=== PATIENT | male | born 1935 | race Caucasian/White ===

== ENCOUNTER 2018-01-13 09:03 | Day surgery (SDC) | payer MEDICARE, BC ==
[2018-01-08 11:13] VITALS: BMI 24.0
[~2018-01-13 09:03] MED LIST: SODIUM CHLORIDE 0.9% 1,000 ML IV SCH; ceFAZolin IN SWFI 2 GM/20 ML SYRINGE IVP ONE
[2018-01-13 09:40] VITALS: RESP 18; TEMP 98.1
[2018-01-13] MEDS ORDERED: MIDAZOLAM 2 MG/2 ML VIAL IV ONE (11:29)
[2018-01-13] MEDS ORDERED: LIDOCAINE 1% INJ 10MG/ML (20 ML MDV) SQ ONE (11:30)
--- NOTE | 2018-01-13 11:49 | P.PCN ---
Preoperative Diagnosis: Loop monitor implant Primary physicians: Dr. Hayes Telehealth Case Manager: Dr. Moore Indication: Tachybradycardia syndrome, postconversion pauses, conduction system disease, atrial fibrillation Patient was brought to the EP lab in a fasting state. Written informed consent was obtained prior to the procedure. The left pectoral area was prepped and draped per protocol. Intravenous antibiotic was administered preoperatively. A subcutaneous Loop monitor was implanted successfully and the wound was closed per protocol. The device was programmed to detect significant lisa- arrhythmic and tachy-arrhythmic events, per protocol. Device and programming details: Atrial fibrillation and bradycardia Patient underwent EP procedure under conscious sedation/moderate sedation, monitoring of the level of consciousness and physiologic parameters including but not limited to vital signs and oxygenation. Patient tolerated the procedure well without any acute complications. Start time: 1129 Stop time: 1141 Disposition: same day
[2018-01-13 12:03] VITALS: BP 132/83; PULSE 55
== END 2018-01-13 12:25 | disposition home or self-care (01) ==
LOC: CATHEP 09:03
PROVIDERS: ATTEND Internal Medicine Clinical Cardiac Electrophysiology
DX: I49.5 Sick sinus syndrome (principal); I48.0 Paroxysmal atrial fibrillation; I10 Essential (primary) hypertension; I25.10 Atherosclerotic heart disease of native coronary artery without angina pectoris; E78.5 Hyperlipidemia, unspecified; I49.3 Ventricular premature depolarization; I65.29 Occlusion and stenosis of unspecified carotid artery; I35.2 Nonrheumatic aortic (valve) stenosis with insufficiency; Z79.01 Long term (current) use of anticoagulants; Z79.82 Long term (current) use of aspirin; Z79.899 Other long term (current) drug therapy
CPT/HCPCS: 33282; J2250; J2001; J0690

== ENCOUNTER 2019-12-02 12:18 | Day surgery (SDC) | payer MEDICARE, BC ==
[2019-12-01 10:39] VITALS: BMI 21.9
[2019-12-02] MEDS ORDERED: SODIUM CHLORIDE 0.9% 500 ML 500 ML IV ONE (12:50)
[2019-12-02 12:53] LABS: Basophils % (A) 1 %; Eosinophils # (A) 0.2 k/uL (0-0.7); Eosinophils % (A) 3 %; HCT 45.8 % (39.0-53.0); HGB 15.1 gm/dL (13.0-17.5); Lymphocytes # (A) 1.8 k/uL (1.0-4.8); Lymphocytes % (A) 24 %; MCH 31.2 pg (25.0-35.0); MCV 94.4 fL (80.0-100.0); Mean Platelet Volume 7.1; Monocytes # (A) 0.6 k/uL (0-1.0); Monocytes % (A) 8 %; Neutrophils # (A) 4.7 k/uL (1.3-7.7); Neutrophils % (A) 62 %; Platelet Count 199 k/uL (150-450); RBC 4.85 m/uL (4.30-5.90); RDW 12.2 % (11.5-15.5); WBC 7.5 k/uL (3.8-10.6)
[2019-12-02 13:03] LABS: African American GFR (CKD) >90 (>60 ml/min/1.73 sqM); Anion Gap 7 mmol/L; Blood Urea Nitrogen 20 mg/dL (9-20); Calcium 9.7 mg/dL (8.4-10.2); Carbon Dioxide 29 mmol/L (22-30); Chloride 103 mmol/L (98-107); Glucose 99 mg/dL (74-99); Non-African American GFR(CKD) 84 (>60 ml/min/1.73 sqM); Sodium 139 mmol/L (137-145)
[2019-12-02] MEDS ORDERED: fentaNYL (PF) 50 MCG/ML 2 ML AMP ONE (15:26)
[2019-12-02] MEDS ORDERED: MIDAZOLAM 2 MG/2 ML VIAL ONE (15:26)
[2019-12-02] MEDS ORDERED: LIDOCAINE 1% INJ 10MG/ML (20 ML MDV) ONE (15:43)
[2019-12-02] MEDS: ceFAZolin 1,000 MG in SODIUM CHLORIDE 0.9% IRRIGATIO 250 ML IRRIGATION ONE ×2 (15:45→15:54)
[2019-12-02] MEDS ORDERED: IOPAMIDOL-370 50ML BTL INJ ONE ×2 (15:45)
[2019-12-02] MEDS: LIDOCAINE 1% INJ 10MG/ML (20 ML MDV) SQ ONE ×2 (16:02→17:50)
[2019-12-02] MEDS ORDERED: LIDOCAINE 1% INJ 10MG/ML (20 ML MDV) SQ ONE ×2 (16:08→16:28)
[2019-12-02] MEDS ORDERED: ACETAMINOPHEN IV (For NPO) 1,000 MG in EMPTY BAG 1 BAG IVPB ONE (17:31)
[2019-12-02] MEDS ORDERED: HYDROcodone/APAP 5-325MG 1 EACH TAB PO PRN (17:31)
--- NOTE | 2019-12-02 18:03 | P.PCN ---
Preoperative Diagnosis: Loop explant under sedation and local anesthesia. Patient was brought to the EP lab in a fasting state. Written informed consent was obtained prior to the procedure. The subcutaneous device was successfully explanted under local anesthesia. Preoperative antibiotics were administered. The wound was closed in layers and dressed per protocol. Result: Successful loop monitor explantation. Anesthesia/BODY AND FRAME TECHNICIAN was in attendance for the entire case
--- NOTE | 2019-12-02 18:13 | P.PCN ---
Preoperative Diagnosis: Left upper extremity venogram 15 mL of IV dye was injected in the left arm and a patent cephalic axillary and subclavian venous system was noted Plan Proceed with biventricular ventricular pacemaker implantation
[2019-12-02 19:08] VITALS: RESP 18
[2019-12-02] MEDS: ACETAMINOPHEN TAB 325 MG TAB PO PRN (20:23)
[2019-12-02] MEDS: APIXABAN 5 MG TAB PO SCH (20:24)
[2019-12-02] MEDS ORDERED: ATORVASTATIN 20 MG TAB PO SCH (21:00)
[2019-12-02] MEDS: SODIUM CHLORIDE 0.9% 1,000 ML IV SCH (21:41)
--- NOTE | 2019-12-03 03:14 | CE ---
CARDIAC ELECTROPHYSIOLOGY REPORT Mr. Hernandez is an 83-year-old male patient who has symptomatic paroxysmal AV block and sick sinus syndrome. He is brought in for a biventricular pacemaker implant to avoid RV pacing. Patient was brought to the EP lab in a fasting state. Written informed consent was obtained prior to the procedure. The left shoulder area was prepped and draped as per protocol and 1% lidocaine was used for local anesthesia. A 4 cm incision was made parallel to the deltopectoral groove, about 1.5 cm medial to it, the incision was carried down to the level of the pectoralis muscle. Subfascial pocket was made. Hemostasis was assured. The left axillary vein was accessed at 3 separate points under fluoroscopy and via appropriately-sized introducer sheaths 3 leads were positioned in the right heart. The right atrial lead was a passive lead, Medtronic model #4574, 53 cm in length and serial number [id number]. P waves 2.1 mV, pacing impedance 781 ohms, pacing threshold 0.4 V at 0.5 milliseconds. Ten volt test negative. The RV lead was a passive lead, 58 cm, a Medtronic model #4074 and serial number [id number]. This was positioned in the RV apex. R waves 12 mV, pacing impedance 1026 ohms, pacing threshold 0.5 V at 0.5 milliseconds. Ten volt test was negative. The third lead that was connected to the LV port of the biventricular pacemaker was a Medtronic model #3830, 69 cm in length and serial number [id number]. Nonselective capture of the His bundle was noted with loss of capture of His bundle was 0.6 V at 1 millisecond. All sheaths were removed. The leads were secured to the underlying pectoralis muscle and the pocket was irrigated with antibiotic solution. Leads were then connected to the generator and the generator were then secured to the underlying pectoralis muscle. This was a Medtronic model number W1TR02, serial number [id number]. The lead and generator were then placed in subfascial pocket. The wound was closed in 3 layers and dressed per protocol. RESULT: Successful biventricular pacemaker implantation for symptomatic paroxysmal AV block and sick sinus syndrome. The device is programmed to DDD mode 50 to 130 ppm. Following that, the loop monitor was explanted. Please see the separate dictation for this and the separate dictation for the left upper extremity venogram that was performed prior to starting the procedure. MMLING / IJN: [id number] /
[2019-12-03] MEDS: SODIUM CHLORIDE 0.9% 1,000 ML IV SCH (04:14)
--- NOTE | 2019-12-03 07:26 | P.PRLE ---
RE: Hilton Hernandez Dear Dr. Hayes Given David and loop monitor implant about 2 years back This recently showed paroxysmal AV block, symptomatic He underwent successful implantation of a biventricular pacemaker with physiologic septal pacing/His bundle pacing Patients with AV node disease or severe bradycardia, in whom the anticipated right ventricular pacing percentage will be high with standard dual-chamber pacing are at a disadvantage since RV pacing over years promotes LV systolic dysfunction and heart failure as well as increased episodes of atrial fibrillation. Biventricular pacing either using an LV lead in the coronary epicardial veins or His bundle pacing promotes a synchronized LV contraction and preserves LV systolic function with reduction in heart failure. One advantage of His bundle pacing is that it promotes conduction down both the normal bundles, simulating intrinsic conduction and preserving LV systolic function This is especially so in patients who already have LV dysfunction His medications will remain unchanged Thank you for entrusting me with the care of the patient Warm regards Sincerely Jesús Quinn
--- NOTE | 2019-12-03 07:33 | P.DS ---
Providers Attending physician: Jesús Quinn Primary care physician: [facility] Course: Patient is doing well. He has localized discomfort over the revealed explant site Pacemaker site is healed well no hematoma no bruising no bruising no swelling Heart sounds are normal, normal S1 normal S2 Breath sounds are clear no rhonchi no crackles No JVD On examination afebrile 97.5F, blood pressure 127/66. His mercury normal respirations normal heart rates Twelve-lead ECG shows sinus mechanism Chest x-ray reviewed and leads in stable position. No pneumothorax Impression Symptomatic paroxysmal AV block and sick sinus syndrome Hypertension Status post biventricular pacemaker with physiologic septal pacing Suggest Discharge home after completion of IV antibiotics Chest x-ray Device interrogation No changes in medications Follow-up in the device clinic in one week and call Dr. Quinn in 3 months Plan - Discharge Summary Discharge Rx Participant: No New Discharge Prescriptions: Continue Multivitamins, Thera [Multivitamin (formulary)] 1 tab PO DAILY Donepezil [Aricept] 10 mg PO DAILY Apixaban [Eliquis] 5 mg PO BID Aspirin [Adult Low Dose Aspirin EC] 81 mg PO Q3D amLODIPine BESYLATE/BENAZEPRIL [amLODIPine BESYLATE/BENAZEPRIL 10-40 MG] 1 cap PO DAILY hydroCHLOROthiazide 12.5 mg PO QAM Atorvastatin [Lipitor] 20 mg PO HS Fish Oil/Dha/Epa [Fish Oil 1,200 mg Fish Oil] 1 each PO DAILY Cannabidiol (Cbd) [Epidiolex] 0 mg PO DAILY Discharge Medication List Apixaban [Eliquis] 5 mg PO BID 01/08/18 [History] Aspirin [Adult Low Dose Aspirin EC] 81 mg PO Q3D 01/08/18 [History] Atorvastatin [Lipitor] 20 mg PO HS 01/08/18 [History] Donepezil [Aricept] 10 mg PO DAILY 01/08/18 [History] Fish Oil/Dha/Epa [Fish Oil 1,200 mg Fish Oil] 1 each PO DAILY 01/08/18 [History] Multivitamins, Thera [Multivitamin (formulary)] 1 tab PO DAILY 01/08/18 [History] amLODIPine BESYLATE/BENAZEPRIL [amLODIPine BESYLATE/BENAZEPRIL 10-40 MG] 1 cap PO DAILY 01/08/18 [History] hydroCHLOROthiazide 12.5 mg PO QAM 01/08/18 [History] Cannabidiol (Cbd) [Epidiolex] 0 mg PO DAILY 12/01/19 [History] Follow up Appointment(s)/Referral(s): Jesús Quinn MD [STAFF PHYSICIAN] - 1 Week (Device clinic follow-up in 1 week Follow-up with Dr. Quinn/Jennifer Salgado/Lula Chong in 3 months) Activity/Diet/Wound Care/Special Instructions: PATIENT EDUCATION MATERIAL Instructions following a heart rhythm device implant. 1. Keep dressing DRY for 5 DAYS. You may cover the area with Saran or Cling Wrap, prior to a shower. 2. The dressing will be removed in the Device Clinic at [facility]. Absorbable sutures were used to close the wound. 3. Avoid raising the left arm above the shoulder level. 4 week restriction 4. Avoid arm movements, like backscratching, rubbing the head, or pulling on a cord. 4 weeks restriction 5. Gentle range of motion movements of the shoulder, closest to the incision should be performed to avoid a frozen shoulder. (Pendulum exercises of the shoulder) 6. The opposite arm may be used freely. 7. Avoid driving for 7 days. 8. Avoid activities such as golfing, swimming, weed whacking, lifting more than 10 pounds weight, bowling, gymnastics and weight training/lifting. (6 weeks restriction) 9. Activities such as wood chopping with an axe, pull-ups in the gymnasium, po wer lifting, arc-welding, being close to home induction cooktops will always be a problem. 10. Arm sling is only a reminder not to raise the arm above the head. You do not need to keep the arm completely immobilized. Your free to move the arm and use it and for normal activities. In case of any problems, please call [facility], Selene Liriano, @ [phone], Attention: Device Clinic Device clinic follow-up in 5 days Follow-up with primary gatehouse attendant in 2-3 months No changes in medications Discharge Disposition: HOME SELF-CARE
--- NOTE | 2019-12-03 07:38 | XR ---
EXAMINATION TYPE: XR chest 2V DATE OF EXAM: 12/03/2019 COMPARISON: NONE HISTORY: Shortness of breath TECHNIQUE: Frontal and lateral views of the chest are obtained. FINDINGS: Scattered senescent parenchymal changes noted. Granuloma right mid lung zone. No evidence for infiltrate. No evidence for atelectasis. Heart size is stable. Mediastinal structures are stable and grossly unremarkable. No evidence for hilar prominence. Degenerative changes dorsal spine. IMPRESSION: 1. No evidence for acute pulmonary disease.
[2019-12-03 07:58] VITALS: BP 138/86; PULSE 84; TEMP 97.8
[2019-12-03] MEDS: APIXABAN 5 MG TAB PO SCH (07:58)
[2019-12-03] MEDS: ACETAMINOPHEN TAB 325 MG TAB PO PRN (08:00)
[2019-12-03] MEDS ORDERED: NON FORMULARY DRUG (Amlodipine Besylate/Benazepril [Amlodipine Besylate/Benazepril 10-40 M PO SCH (09:00)
[2019-12-03] MEDS ORDERED: ASPIRIN 81 MG PO SCH (09:00)
[2019-12-03] MEDS ORDERED: lisinopriL 20 MG TAB PO SCH (09:00)
[2019-12-03] MEDS ORDERED: amLODIPine 10 MG TAB PO SCH (09:00)
[2019-12-03] MEDS ORDERED: hydroCHLOROthiazide 12.5 MG CAP PO SCH (09:00)
== END 2019-12-03 10:39 | disposition home or self-care (01) ==
LOC: CATHEP 12:18 → 3NCARDOBS 17:25 → CATHEP 12-03 10:39
PROVIDERS: ATTEND Internal Medicine Clinical Cardiac Electrophysiology
DX: I44.2 Atrioventricular block, complete (principal); I49.5 Sick sinus syndrome; Z45.09 Encounter for adjustment and management of other cardiac device; I35.0 Nonrheumatic aortic (valve) stenosis; I48.0 Paroxysmal atrial fibrillation; I25.10 Atherosclerotic heart disease of native coronary artery without angina pectoris; I10 Essential (primary) hypertension; E78.5 Hyperlipidemia, unspecified; Z79.01 Long term (current) use of anticoagulants; Z79.82 Long term (current) use of aspirin; Z79.899 Other long term (current) drug therapy
CPT/HCPCS: 33225; 33208; 33286; 80048; 85025; 71046; C1769 ×3; C1892; C1898 ×2; C2621; J2250; J0690 ×3; J2001; J3010; J0131; Q9967

== ENCOUNTER → 2020-11-17 | Outpatient (CLI) | payer MEDICARE ==
--- NOTE | 2020-11-17 11:21 | CT ---
EXAMINATION TYPE: CT brain wo con DATE OF EXAM: 11/17/2020 COMPARISON: Dementia HISTORY: Dementia in other diseases classified elsewhere CT DLP: 1029.90 mGycm Automated exposure control for dose reduction was used. FINDINGS: Moderate generalized degenerative change. There is low attenuation in the white matter which is nonsp ecific and most typical remote white matter ischemia. There is no acute hemorrhage or mass effect. Th ere is no midline shift. Craniocervical junction maintained. Sella turcica has a normal appearance. IMPRESSION: DEGENERATIVE AND NONSPECIFIC WHITE MATTER CHANGES MOST TYPICAL REMOTE ISCHEMIA.
== END | disposition home or self-care (01) ==
LOC: RADCTMAIN 10:03
PROVIDERS: ATTEND Psychiatry & Neurology Neurology
DX: G31.9 Degenerative disease of nervous system, unspecified (principal)
CPT/HCPCS: 70450